=== PATIENT | female | born 1960 | race Caucasian/White ===

== ENCOUNTER 2017-09-20 17:56 | Emergency (ER) | payer OTHER ==
[~2017-09-20] VITALS: Ht 162.6 cm; Wt 73.2 kg
[2017-09-20 18:43] VITALS: BP 140/87
== END 2017-09-20 23:18 | disposition home or self-care (01) ==
LOC: EME 17:56
DX: S09.90XA Unspecified injury of head, initial encounter (principal); W01.198A Fall on same level from slipping, tripping and stumbling with subsequent striking against other object, initial encounter; J45.909 Unspecified asthma, uncomplicated; K21.9 Gastro-esophageal reflux disease without esophagitis; G89.29 Other chronic pain; B19.20 Unspecified viral hepatitis C without hepatic coma; F17.200 Nicotine dependence, unspecified, uncomplicated; Z86.73 Personal history of transient ischemic attack (TIA), and cerebral infarction without residual deficits
CPT/HCPCS: 70450; 99281; 99284

== ENCOUNTER 2017-10-30 13:46 | Emergency (ER) | payer OTHER ==
[~2017-10-30] VITALS: Ht 162.6 cm; Wt 74.3 kg
[2017-10-30 15:45] LABS: GLUCOSE 498 mg/dL (70-99)
[2017-10-30 17:03] LABS: HEMATOCRIT 44.6 % (36.0-46.0); MCH 35.9 PG (29.0-34.0); MCHC 35.9 G/DL (30.0-36.0); PLATELET COUNT 125 K/uL (156-360); RBC DIS.WIDTH-CV 12.9 % (11.8-14.6); RBC DIS.WIDTH-SD 47.6 % (39-53); RED BLOOD COUNT 4.46 M/uL (3.80-5.20); WHITE BLOOD COUNT 5.5 K/uL (4.1-10.2)
[2017-10-30 17:10] LABS: CHLORIDE 94 MEQ/L (99-109); CREATININE 0.8 MG/DL (0.6-1.3); GFR ESTIMATE (CALCULATED) > 59 mL/min/; POTASSIUM 4.2 MEQ/L (3.7-5.4); SODIUM 131 MEQ/L (136-147); UREA NITROGEN (BUN) 8 mg/dL (9-23)
[2017-10-30 17:41] LABS: CARBON DIOXIDE (BICARBONATE) 34.8 MEQ/L (20-31)
[2017-10-30 19:56] LABS: ALBUMIN 3.7 G/DL (3.2-4.8); ALKALINE PHOSPHATASE 375 IU/L (3-129); ALT (GPT) 183 IU/L (3-49); AST (GOT) 159 IU/L (2-34); DIRECT BILIRUBIN 0.2 mg/dL (0.0-0.3); TOTAL BILIRUBIN 0.7 MG/DL (0.0-1.0); TOTAL PROTEIN 7.5 G/DL (6.4-8.3)
[2017-10-30 20:15] LABS: TROP-I INTERPRETATION NEGATIVE; TROPONIN-I < 0.01 ng/mL (0.0-0.30)
[2017-10-30 21:29] LABS: TROP-I INTERPRETATION NEGATIVE; TROPONIN-I < 0.01 ng/mL (0.0-0.30)
[2017-10-30 22:31] VITALS: BP 147/86
== END 2017-10-30 22:36 | disposition home or self-care (01) ==
LOC: EME 13:46
PROVIDERS: Physician Assistant Medical
DX: E11.65 Type 2 diabetes mellitus with hyperglycemia (principal); R07.9 Chest pain, unspecified; Z79.84 Long term (current) use of oral hypoglycemic drugs; G89.29 Other chronic pain; F11.11 Opioid abuse, in remission; F17.200 Nicotine dependence, unspecified, uncomplicated; J45.909 Unspecified asthma, uncomplicated; K21.9 Gastro-esophageal reflux disease without esophagitis; Z86.73 Personal history of transient ischemic attack (TIA), and cerebral infarction without residual deficits; B19.20 Unspecified viral hepatitis C without hepatic coma
CPT/HCPCS: 71046; 80048; 80048 91; 80076; 82010; 82803; 82947; 82948; 84484; 85027; 93005; 99281; 99285; J2270; J7030

== ENCOUNTER 2018-01-17 05:41 | Emergency (ER) | payer OTHER ==
[~2018-01-17] VITALS: Ht 162.6 cm; Wt 68.5 kg
[2018-01-17] MEDS ORDERED: KEFLEX500 MG PO (06:34)
[2018-01-17] MEDS ORDERED: BACTRIM,SEPT1 TABLET PO (06:34)
[2018-01-17 06:50] VITALS: BP 122/81
== END 2018-01-17 06:51 | disposition home or self-care (01) ==
LOC: EME 05:41
DX: L03.022 Acute lymphangitis of left finger (principal); E11.9 Type 2 diabetes mellitus without complications; M79.7 Fibromyalgia; G89.29 Other chronic pain; B19.20 Unspecified viral hepatitis C without hepatic coma; K74.60 Unspecified cirrhosis of liver; F17.200 Nicotine dependence, unspecified, uncomplicated
CPT/HCPCS: 99281; 99283